=== PATIENT | female | born 1995 | race Caucasian/White ===

== ENCOUNTER 2017-11-29 20:52 | Emergency (ER) | payer OTHER ==
[2017-11-29 21:14] VITALS: BP 139/86
[2017-11-29] MEDS ORDERED: LIDOCAINE 1% INJ-PF (10 MG/ML) 30 ML SDV INJ ONE (22:17)
--- NOTE | 2017-11-29 22:19 | ER Document Report ---
ED Skin Rash/Insect Bite/Abscs - General Mode of Arrival: Ambulatory Information source: Patient TRAVEL OUTSIDE OF THE U.S[place] IN LAST 30 DAYS: No <SWAPNA STAFFORD - Last Filed: 11/29/17 22:20> <NATACHA SUTHERLAND - Last Filed: 11/29/17 23:03> - General Chief Complaint: Abscess Stated Complaint: POSSIBLE ABSCESS ON VAGINA Time Seen by Provider: 11/29/17 22:06 Notes: 22 year old female that presents to the emergency department today with complaints of a Bartholin's cyst. Patient states she has had to have two Bartholin's cysts drained in the past, today would make the third time. Patient states the area has becoming increasing swollen and tender over the last two days. (SWAPNA STAFFORD) - Related Data Allergies/Adverse Reactions: tramadol Allergy (Verified 11/29/17 20:56) Past Medical History - General Information source: Patient - Social History Smoking Status: Never Smoker Cigarette use (# per day): No Frequency of alcohol use: Social Drug Abuse: None Lives with: Family Family History: Reviewed & Not Pertinent Skin Medical History: Reports Other - Bartholin's cyst drained twice previously Past Surgical History: Reports: Other - Lipoma removed from left hip and left forearm. Multiple dental extractions. <SWAPNA STAFFORD - Last Filed: 11/29/17 22:20> Review of Systems - Review of Systems Constitutional: No symptoms reported EENT: No symptoms reported Cardiovascular: No symptoms reported Respiratory: No symptoms reported Gastrointestinal: No symptoms reported Genitourinary: No symptoms reported Female Genitourinary: No symptoms reported Musculoskeletal: No symptoms reported Skin: See HPI, Other - Bartholin's cyst Hematologic/Lymphatic: No symptoms reported Neurological/Psychological: No symptoms reported -: Yes All other systems reviewed and negative <SWAPNA STAFFORD - Last Filed: 11/29/17 22:20> Physical Exam <SWAPNA STAFFORD - Last Filed: 11/29/17 22:20> - Genitourinary External exam: Other - The right labia majora medial aspect as a very large swollen fluctuant area with thinning of the skin. There is no inflammation noted. There appears to be clear fluid under the thin skin. There is no lesion seen on the labia minora on the outer or inner surface. <NATACHA SUTHERLAND - Last Filed: 11/29/17 23:03> - Vital signs Vitals: Temp Pulse BP Pulse Ox 97.6 F 91 139/86 H 100 11/29/17 21:13 11/29/17 21:13 11/29/17 21:13 11/29/17 21:13 - Notes Notes: Physical Exam: General: Alert, appears well. HEENT: Normocephalic. Atraumatic. PERRL. Extraocular movements intact. Oropharynx clear. Neck: Supple. Non-tender. Respiratory: No respiratory distress. Clear and equal breath sounds bilaterally. Cardiovascular: Regular rate and rhythm. Abdominal: Normal Inspection. Non-tender. No distension. Normal Bowel Sounds. Back: Non-tender. No deformity or step off. Extremities: Moves all four extremities. Upper extremities: Normal inspection. Normal ROM. Lower extremities: Normal inspection. No edema. Normal ROM. Neurological: Normal cognition. AAOx4. Normal speech. Psychological: Normal affect. Normal Mood. Skin: Warm. Dry. Normal color. (SWAPNA STAFFORD) Course <SWAPNA STAFFORD - Last Filed: 11/29/17 22:20> <NATACHA SUTHERLAND - Last Filed: 11/29/17 23:03> - Re-evaluation Re-evalutation: 11/29/17 23:01 Procedure: In the dorsal lithotomy position, the right labia majora cystic area was cleaned with Hibiclens. One half mL of 1% lidocaine was injected subcutaneously to the most prominent, bulging aspect of this cystic area. A small incision was made with a #11 blade, and a thick, tenacious, crystal- clear fluid was expressed. This mucinous or mucoid fluid could be stretched several centimeters like a sheet of saran wrap appearance. A word catheter was placed and the balloon inflated inside the cyst. (NATACHA SUTHERLAND) - Vital Signs Vital signs: Temp Pulse Resp BP Pulse Ox 97.6 F 91 139/86 H 100 11/29/17 21:13 11/29/17 21:13 11/29/17 21:13 11/29/17 21:13 Discharge <SWAPNA STAFFORD - Last Filed: 11/29/17 22:20> <NATACHA SUTHERLAND - Last Filed: 11/29/17 23:03> - Discharge Clinical Impression: Mucinous cyst of the vulva Condition: Stable Disposition: HOME, SELF-CARE Additional Instructions: You appear to have a mucinous or mucoid cyst of your outer labia. There was a very thick, tenacious, crystal-clear fluid filling this swollen area. After the fluid was drained, a Word catheter was placed. You can remove the catheter by deflating the balloon using the syringe he was sent home with, or by cutting the neck of the catheter and allowing the fluid to run out. Take Tylenol and ibuprofen for pain if needed. Follow-up with your YARD MANAGER doctor when you return home next week. RETURN TO THE EMERGENCY ROOM IF ANY NEW OR WORSENING SYMPTOMS. Scribe Attestation: 11/29/17 23:00 I personally performed the services described in the documentation, reviewed and edited the documentation which was dictated to the scribe in my presence, and it accurately records my words and actions. (NATACHA SUTHERLAND) Scribe Documentation - Scribe Written by Alpesh:: Alpesh De Jesus, 11/29/2017 2219 acting as scribe for :: Sarabjit <SWAPNA STAFFORD - Last Filed: 11/29/17 22:20>
== END 2017-11-29 23:25 | disposition home or self-care (01) ==
LOC: ER 20:52 → EDBD 20:52 → ER 23:25
DX: N90.7 Vulvar cyst (principal); Z88.5 Allergy status to narcotic agent
CPT/HCPCS: 56405; 99283; J3490

== ENCOUNTER 2018-03-27 14:20 | Emergency (ER) | payer BC, OTHER ==
[2018-03-27] MEDS ORDERED: ACETAMINOPHEN 325 MG TABLET PO ONE (15:51)
[2018-03-27] MEDS ORDERED: ACETAMINOPHEN 325 MG TABLET ONE (15:52)
[2018-03-27] MEDS ORDERED: AZITHROMYCIN 250 MG TABLET PO ONE (17:07)
[2018-03-27 17:16] VITALS: BP 119/63
--- NOTE | 2018-03-27 17:17 | ER Document Report ---
ED Medical Screen (RME) - General Chief Complaint: Fever Stated Complaint: FEVER Time Seen by Provider: 03/27/18 15:41 TRAVEL OUTSIDE OF THE U.S. IN LAST 30 DAYS: No - HPI Patient complains to provider of: Fever Onset: Other - This is a 22-year-old female who is otherwise healthy taking vitamins that presents for concern of fever. She called her audiovisual technician today who noted that he was concerned that she had a persistent fever over the last 3 days with cough and runny nose prompting her to come to the emergency room. She was seen yesterday in urgent care and underwent flu testing as well as a urine test which did not show any cause for this patient's fever. Thereafter she was discharged home without any medications. Did take some Tylenol earlier today prior to arrival. Denies abdominal pain diarrhea constipation dysuria or cramping. - Related Data Allergies/Adverse Reactions: tramadol Allergy (Verified 03/27/18 14:21) Past Medical History - General Information source: Patient, Relative - Social History Chew tobacco use (# tins/day): No Frequency of alcohol use: None Drug Abuse: None Renal/ Medical History: Denies: Hx Peritoneal Dialysis Past Surgical History: Reports: Hx Tonsillectomy, Other - Lipoma removed from left hip and left forearm. Multiple dental extractions. Review of Systems - Review of Systems -: Yes All other systems reviewed and negative Physical Exam - Vital signs Vitals: Temp Pulse Resp BP Pulse Ox 100.2 F 102 H 16 134/74 H 100 03/27/18 14:29 03/27/18 14:29 03/27/18 14:29 03/27/18 14:29 03/27/18 14:29 Interpretation: Normal - General General appearance: Appears well, Alert - HEENT Head: Normocephalic, Atraumatic Eyes: Normal Pupils: PERRL - Respiratory Respiratory status: No respiratory distress Chest status: Nontender Breath sounds: Normal Chest palpation: Normal - Cardiovascular Rhythm: Regular Heart sounds: Normal auscultation Murmur: No - Abdominal Inspection: Normal Distension: No distension Bowel sounds: Normal Tenderness: Nontender Organomegaly: No organomegaly - Back Back: Normal, Nontender - Extremities General upper extremity: Normal inspection, Nontender, Normal color, Normal ROM, Normal temperature General lower extremity: Normal inspection, Nontender, Normal color, Normal ROM, Normal temperature, Normal weight bearing. No: Chanell's sign - Neurological Neuro grossly intact: Yes Cognition: Normal Orientation: AAOx4 Wade Coma Scale Eye Opening: Spontaneous Wade Coma Scale Verbal: Oriented Wade Coma Scale Motor: Obeys Commands Redd Coma Scale Total: 15 Speech: Normal Motor strength normal: LUE, RUE, LLE, RLE Sensory: Normal - Psychological Associated symptoms: Normal affect, Normal mood - Skin Skin Temperature: Warm Skin Moisture: Dry Skin Color: Normal Course - Re-evaluation Re-evalutation: 03/27/18 21:29 This is an exceptionally well-appearing 22-year-old female that presents for evaluation of cough and fever. Patient is 9 weeks . Attempted to call her audiovisual technician office spoke to the on-call triage nurse who referred me to paging the on-call physician. Called the on-call physician waited approximately 40 minutes did not receive a call back. Spoke to the patient about treatment options at this time, believe it would be reasonable to pursue a workup for potential underlying pneumonia, yesterday she did have negative flu swab and a negative urinalysis do not believe these are worth repeating at this time. We discussed the risks and benefits of chest x-ray for underlying pneumonia and antibiotic use in the setting of . At this time she would prefer to defer x-ray if able and pursue presumptive treatment.. We will plan for this patient undergo discharge with return precautions and expectant management with the treatment of pneumonia utilizing azithromycin. I have very limited on options for antitussives as a result encouraged her to utilize honey and tea - Vital Signs Vital signs: Temp Pulse Resp BP Pulse Ox 99.2 F 99 17 119/63 97 03/27/18 17:14 03/27/18 17:14 03/27/18 17:14 03/27/18 17:14 03/27/18 17:14 Doctor's Discharge - Discharge Clinical Impression: Pneumonia Qualifiers: Pneumonia type: due to unspecified organism Laterality: unspecified laterality Lung location: unspecified part of lung Qualified Code(s): J18.9 - Pneumonia, unspecified organism Condition: Good Disposition: HOME, SELF-CARE Instructions: Acetaminophen, Azithromycin ([facility]), Fever ([facility]) Additional Instructions: You were seen today in the emergency department for your cough and fever. You had evaluation during a physical exam, it is concerning that he may have a community-acquired pneumonia. Because the concern for your possible pneumonia you have been started on antibiotic. You should use the antibiotic as directed, call your doctor for an appointment this week. There is no appropriately safe cough medicine for you. You can use honey mixed with tea to help soothe your throat and your cough. Continue to use Tylenol 650 mg as needed every 6 hours for fever or aches. Prescriptions: Azithromycin [Zithromax] 250 mg PO DAILY #5 tablet
== END 2018-03-27 17:14 | disposition home or self-care (01) ==
LOC: ER 14:20
DX: O99.511 Diseases of the respiratory system complicating pregnancy, first trimester (principal); J18.9 Pneumonia, unspecified organism; O26.891 Other specified pregnancy related conditions, first trimester; R50.9 Fever, unspecified; R05 Cough; R09.89 Other specified symptoms and signs involving the circulatory and respiratory systems; Z3A.09 9 weeks gestation of pregnancy; Z88.5 Allergy status to narcotic agent
CPT/HCPCS: 99283

== ENCOUNTER 2018-03-30 13:38 | Emergency (ER) | payer BC ==
--- NOTE | 2018-03-30 14:11 | ER Document Report ---
ED Medical Screen (RME) - General Chief Complaint: Vag Bleeding, +preg <12wks Stated Complaint: VAGINAL BLEEDING Time Seen by Provider: 03/30/18 13:59 Notes: RAPID MEDICAL EVALUATION DISCLOSURE I have seen this patient as part of a Rapid Medical Evaluation and, if applicable, placed any initially appropriate orders. The patient will be seen and fully evaluated, including a full history and physical exam, by a provider (in Main ED or Fast Track) when a room becomes available. 22-year-old female approximately 8 weeks 4 days gestation (by ultrasound performed in [place] at 7 weeks) here with complaints of lower abdominal cramping ongoing for the past 3 days and today had a small blood clot that she passed vaginally. She has had some nausea throughout her but no vomiting. Other than the blood clot, denies vaginal bleeding discharge fevers chills urinary symptoms. EXAM Minimal left lower quadrant TTP No peritoneal signs TRAVEL OUTSIDE OF THE [place] IN LAST 30 DAYS: No - Related Data Allergies/Adverse Reactions: tramadol Allergy (Verified 03/30/18 13:40) Past Medical History - Social History Chew tobacco use (# tins/day): No Frequency of alcohol use: None Drug Abuse: None Pulmonary Medical History: Reports: Hx Pneumonia Renal/ Medical History: Denies: Hx Peritoneal Dialysis Past Surgical History: Reports: Hx Oral Surgery - [place] teeth removal, Hx Tonsillectomy, Other - Lipoma removed from left hip and left forearm. Multiple dental extractions. Physical Exam - Vital signs Vitals: Temp Pulse Resp BP Pulse Ox 98.2 F 102 H 15 118/72 99 03/30/18 13:44 03/30/18 13:44 03/30/18 13:44 03/30/18 13:44 03/30/18 13:44 Course - Vital Signs Vital signs: Temp Pulse Resp BP Pulse Ox 98.2 F 102 H 15 118/72 99 03/30/18 13:44 03/30/18 13:44 03/30/18 13:44 03/30/18 13:44 03/30/18 13:44
[2018-03-30 15:13] LABS: APPEARANCE,URINE SLIGHTLY-CLOUDY; BILIRUBIN,URINE NEGATIVE (NEGATIVE); COLOR,URINE YELLOW; GLUCOSE, URINE NEGATIVE (NEGATIVE); KETONES,URINE 20 mg/dL (NEGATIVE); LEUKOCYTE ESTERASE,URINE NEGATIVE (NEGATIVE); NITRITE,URINE NEGATIVE (NEGATIVE); PROTEIN,URINE NEGATIVE (NEGATIVE); URINE SPECIFIC GRAVITY 1.019; UROBILINOGEN,URINE NEGATIVE mg/dL (<2.0)
[2018-03-30 15:15] LABS: ABSOLUTE LYMPHOCYTES (AUTO) 1.1 10^3/uL (0.5-4.7); ABSOLUTE MONOCYTES (AUTO) 0.6 10^3/uL (0.1-1.4); ABSOLUTE NEUT (AUTO) 2.8 10^3/uL (1.7-8.2); BASOPHILS % (AUTO) 0.4 % (0-2); EOSINOPHILS % (AUTO) 0.3 % (0-6); HEMATOCRIT 39.1 % (36.0-47.0); HEMOGLOBIN 13.5 g/dL (12.0-15.5); MEAN CORPUSCULAR HEMOGLOBIN 28.9 pg (27.0-33.4); MEAN CORPUSCULAR HGB CONC 34.7 g/dL (32.0-36.0); MEAN CORPUSCULAR VOLUME 83 fl (80-97); MONOCYTES % (AUTO) 12.5 % (3-13); PLATELET COUNT 217 10^3/uL (150-450); RED BLOOD COUNT 4.69 10^6/uL (3.72-5.28); RED CELL DISTRIBUTION WIDTH 13.5 % (11.5-14.0); SEGMENTED NEUTROPHILS % (AUTO) 62.8 % (42-78); TOTAL CELLS COUNTED % (AUTO) 100 %; WHITE BLOOD COUNT 4.5 10^3/uL (4.0-10.5)
[2018-03-30 15:25] LABS: ALANINE AMINOTRANSFERASE 30 U/L (9-52); ALBUMIN 4.4 g/dL (3.5-5.0); ALKALINE PHOSPHATASE 63 U/L (38-126); ANION GAP 14 (5-19); ASPARTATE AMINO TRANSFERASE 35 U/L (14-36); BILIRUBIN,DIRECT 0.2 mg/dL (0.0-0.4); BILIRUBIN,TOTAL 0.2 mg/dL (0.2-1.3); BLOOD UREA NITROGEN 7 mg/dL (7-20); CALCIUM 9.7 mg/dL (8.4-10.2); CARBON DIOXIDE 23 mmol/L (22-30); CHLORIDE 101 mmol/L (98-107); GLUCOSE 85 mg/dL (75-110); POTASSIUM 4.2 mmol/L (3.6-5.0); SODIUM 137.6 mmol/L (137-145); TOTAL PROTEIN 7.7 g/dL (6.3-8.2)
--- NOTE | 2018-03-30 16:37 | RADIOLOGY REPORT (SQ) ---
EXAM DESCRIPTION: U/S OB TRANSVAG W/DOPPLER COMPLETED DATE/TIME: 03/30/2018 4:03 pm REASON FOR STUDY: , vag bleed, abd pain; torsion miscarriage COMPARISON: None. TECHNIQUE: Transvaginal static and realtime grayscale images acquired of the pelvis. Additional david cted spectral and color Doppler images recorded. All images stored on PACs. bHCG: Not available. CLINICAL DATES: EGA LIMITATIONS: None. FINDINGS: FETUS: Single Living intrauterine . ULTRASOUND EGA: 8 weeks 5 days ULTRASOUND BENJAMIN: 11/04/2018 EFW: Not applicable less than 20 weeks. CRL: 2.1 cm FHR: 168 beats per minute. SURVEY: No visualized anomalies. AMNIOTIC FLUID: Adequate amount. PLACENTA: Not yet developed due to early gestation. SUBCHORIONIC BLEED: No. SIZE OF BLEED: Not applicable. UTERUS: No masses. No anomalies. CERVICAL LENGTH: 3.1 cm Closed. RIGHT ADNEXA: Normal ovary with normal vascular flow. No adnexal free fluid. No adnexal masses. LEFT ADNEXA: Ovary not identified due to poor acoustical window. No adnexal free fluid. No adnexal masses. FREE FLUID: None. OTHER: No other significant finding. IMPRESSION: LIVING INTRAUTERINE . EGA 8 weeks 5 days. Trimester of : First - 0 to 13 weeks. TECHNICAL DOCUMENTATION: JOB ID: [id number] [employer]- All Rights Reserved Reading location - IP/workstation name: [email or web address]
--- NOTE | 2018-03-30 17:11 | ER Document Report ---
ED General - General Chief Complaint: Vag Bleeding, +preg <12wks Stated Complaint: VAGINAL BLEEDING Time Seen by Provider: 03/30/18 13:59 Notes: Patient is a 22-year-old female 8 weeks and 4 days presents to the emergency department for vaginal bleeding. Patient states she urinated this afternoon and thinks she passed a blood clot. Patient states when she wiped with tissue she noted a large amount of bright red blood. Patient denies any blood in the toilet. States she has not used any pads or tampons since and has not bled since. Patient states she was concerned which is why she presents to the emergency room. Patient's last menstrual period was January 29, patient denies any abdominal pain, cramping. Past medical history: Scoliosis Medications: vitamins, Z-Asif Allergies: Tramadol TRAVEL OUTSIDE OF THE [place] IN LAST 30 DAYS: No - Related Data Allergies/Adverse Reactions: tramadol Allergy (Verified 03/30/18 13:40) Past Medical History - General Information source: Patient - Social History Smoking Status: Never Smoker Chew tobacco use (# tins/day): No Frequency of alcohol use: None Drug Abuse: None Family History: Reviewed & Not Pertinent Patient has suicidal ideation: No Patient has homicidal ideation: No Pulmonary Medical History: Reports: Hx Pneumonia Renal/ Medical History: Denies: Hx Peritoneal Dialysis Past Surgical History: Reports: Hx Oral Surgery - [place] teeth removal, Hx Tonsillectomy, Other - Lipoma removed from left hip and left forearm. Multiple dental extractions. Review of Systems - Review of Systems Constitutional: No symptoms reported EENT: No symptoms reported Cardiovascular: No symptoms reported Respiratory: No symptoms reported Gastrointestinal: No symptoms reported Genitourinary: See HPI Female Genitourinary: See HPI Musculoskeletal: No symptoms reported Skin: No symptoms reported Hematologic/Lymphatic: No symptoms reported Neurological/Psychological: No symptoms reported Physical Exam - Vital signs Vitals: Temp Pulse Resp BP Pulse Ox 98.2 F 102 H 15 118/72 99 03/30/18 13:44 03/30/18 13:44 03/30/18 13:44 03/30/18 13:44 03/30/18 13:44 - Notes Notes: GENERAL: Alert, interacts well. No acute distress. HEAD: Normocephalic, atraumatic. EYES: Pupils equal, round, and reactive to light. Extraocular movements intact. ENT: Oral mucosa moist, tongue midline. NECK: Full range of motion. Supple. Trachea midline. LUNGS: Clear to auscultation bilaterally, no wheezes, rales, or rhonchi. No respiratory distress. HEART: Regular rate and rhythm. No murmur ABDOMEN: Soft, non-tender. Non-distended. Bowel sounds present in all 4 quadrants. EXTREMITIES: Moves all 4 extremities spontaneously. No edema, normal radial and dorsalis pedis pulses bilaterally. No cyanosis. BACK: no cervical, thoracic, lumbar midline tenderness. No saddle anesthesia, normal distal neurovascular exam. NEUROLOGICAL: Alert and oriented x3. Normal speech. cranial nerves II through XII grossly intact PSYCH: Normal affect, normal mood. SKIN: Warm, dry, normal turgor. No rashes or lesions noted. Course - Re-evaluation Re-evalutation: 03/30/18 17:12 Patient's ultrasound shows an 8-week 5-day IUP with no signs of subchorionic bleed. There are no signs of anemia or leukocytosis on patient's labs. Her beta hCG is [id number]. She has 1 RBC on her urine with no signs of infection noted. Discussed ultrasound results with patient at bedside and need to follow-up with primary care provider. Discussed use of pelvic rest until she follows up with [employer] BELT SANDER TENDER. 03/30/18 18:25 RhoGam is not indicated at this time, patient stable for discharge. - Vital Signs Vital signs: Temp Pulse Resp BP Pulse Ox 98.2 F 102 H 15 118/72 99 03/30/18 13:44 03/30/18 13:44 03/30/18 13:44 03/30/18 13:44 03/30/18 13:44 - Laboratory Result Diagrams: 03/30/18 14:58 03/30/18 14:58 Laboratory results interpreted by me: 03/30/18 03/30/18 14:58 14:58 Creatinine 0.43 L Beta HCG, Quant 077222.00 H Urine Ketones 20 H Discharge - Discharge Clinical Impression: Vaginal bleeding affecting early Condition: Stable Disposition: HOME, SELF-CARE Instructions: Vaginal Bleeding ([facility]) Additional Instructions: As we discussed you have been seen and treated in the emergency department for vaginal bleeding during . At this point in time your ultrasound res ults are normal. There is currently nothing wrong with your . Please follow-up with your SPEED BELT SANDER TENDER within 24-48 hours. Please return to the emergency room should you have any more vaginal bleeding, get dizzy or lightheaded or have any other concerns. Please partake in pelvic rest until you follow-up with [employer]T SANDER TENDER. This means no toys, fingers, tampons, penises, or anything is to be inserted into the vagina.
[2018-03-30 19:03] VITALS: BP 120/73
== END 2018-03-30 19:03 | disposition home or self-care (01) ==
LOC: ER 13:38
DX: O20.9 Hemorrhage in early pregnancy, unspecified (principal); Z3A.08 8 weeks gestation of pregnancy
CPT/HCPCS: 36415; 76817; 80053; 81001; 84702; 85025; 86900; 86901; 93976; 99284

== ENCOUNTER 2018-07-30 09:14 | Outpatient (CLI) | payer BC, OTHER ==
[2018-07-30 10:09] LABS: APPEARANCE,URINE CLOUDY; BILIRUBIN,URINE NEGATIVE (NEGATIVE); COLOR,URINE YELLOW; GLUCOSE, URINE NEGATIVE (NEGATIVE); KETONES,URINE NEGATIVE (NEGATIVE); LEUKOCYTE ESTERASE,URINE LARGE (NEGATIVE); NITRITE,URINE NEGATIVE (NEGATIVE); PROTEIN,URINE NEGATIVE (NEGATIVE); URINE SPECIFIC GRAVITY 1.008; UROBILINOGEN,URINE NEGATIVE mg/dL (<2.0)
[2018-07-30 12:26] LABS: URINE AMPHETAMINES SCREEN NEGATIVE; URINE BARBITURATES SCREEN NEGATIVE; URINE BENZODIAZEPINES SCREEN NEGATIVE; URINE COCAINE SCREEN NEGATIVE; URINE MARIJUANA (THC) SCREEN NEGATIVE; URINE METHADONE SCREEN NEGATIVE; URINE PHENCYCLIDINE SCREEN NEGATIVE
== END 2018-07-30 10:31 | disposition home or self-care (01) ==
LOC: LC 09:14
PROVIDERS: ATTEND Student in an Organized Health Care Education/Training Program
PROC: 4A1HXCZ Monitoring of Products of Conception, Cardiac Rate, External Approach (ICD-10-PCS; principal; 2018-07-30)
DX: O36.8120 Decreased fetal movements, second trimester, not applicable or unspecified (principal); Z3A.26 26 weeks gestation of pregnancy
CPT/HCPCS: 59025; 80307; 81001

== ENCOUNTER 2018-09-10 08:41 | Outpatient (CLI) | payer BC, OTHER ==
[2018-09-10 09:23] LABS: APPEARANCE,URINE SLIGHTLY-CLOUDY; BILIRUBIN,URINE NEGATIVE (NEGATIVE); COLOR,URINE YELLOW; GLUCOSE, URINE NEGATIVE (NEGATIVE); KETONES,URINE NEGATIVE (NEGATIVE); LEUKOCYTE ESTERASE,URINE MODERATE (NEGATIVE); NITRITE,URINE NEGATIVE (NEGATIVE); PROTEIN,URINE NEGATIVE (NEGATIVE); URINE SPECIFIC GRAVITY 1.012; UROBILINOGEN,URINE NEGATIVE mg/dL (<2.0)
[2018-09-10 09:35] LABS: URINE AMPHETAMINES SCREEN NEGATIVE; URINE BARBITURATES SCREEN NEGATIVE; URINE BENZODIAZEPINES SCREEN NEGATIVE; URINE COCAINE SCREEN NEGATIVE; URINE MARIJUANA (THC) SCREEN NEGATIVE; URINE METHADONE SCREEN NEGATIVE; URINE PHENCYCLIDINE SCREEN NEGATIVE
--- NOTE | 2018-09-10 10:22 | Non Stress Test Report ---
Non Stress Test Datetime Report Generated by CPN: 09/10/2018 10:21 DEMOGRAPHIC EGA NST: 32.0 INDICATION Indication for Study: Decreased Movement MONITORING Monitor Explained: Monitor Explained; Test Explained; Patient Verbalized Understanding Time on Monitor: 09/10/2018 09:30 Time off Monitor: 09/10/2018 10:07 NST Duration: 37 NST INTERVENTIONS NST Interventions: PO Hydration Physician Notified NST: Dr Parikh BABY A: [id number] BABY A Movement : Present Contraction Frequency : 0 FHR Baseline : 135 Accelerations : 15X15 Decelerations : None Variability : Moderate 6-25bpm NST Review: Meets Criteria for Reactive NST NST Review and Verified By : Yovanny Ngo RN NST Results: Reactive NST REPORT Report Trigger: Send Report
== END 2018-09-10 10:12 | disposition home or self-care (01) ==
LOC: LC 08:41
PROVIDERS: ATTEND Obstetrics & Gynecology Gynecology
PROC: 4A1HXCZ Monitoring of Products of Conception, Cardiac Rate, External Approach (ICD-10-PCS; principal; 2018-09-10)
DX: O36.8130 Decreased fetal movements, third trimester, not applicable or unspecified (principal); Z3A.32 32 weeks gestation of pregnancy
CPT/HCPCS: 59025; 80307; 81001